=== PATIENT | female | born 1930 | race Caucasian/White ===

== ENCOUNTER 2016-10-24 12:39 | Observation (INO) ==
--- NOTE | 2016-10-24 13:34 | Emergency Department Note ---
Disposition Clinical Impression: Urinary tract infection, Altered mental status Disposition: Admitted As Inpatient Condition: Fair Time of Disposition: 15:32 Altered Mental Status HPI - General Chief Complaint: ED General Medical Stated Complaint: Confusion Time Seen by Provider: 10/24/16 12:51 Source: patient, family Mode of arrival: ambulatory Limitations: no limitations Nursing Notes Reviewed: Yes Vital Signs Reviewed: Yes - History of Present Illness HPI Narrative: Ms Roladn is an 85yo female with PMH of HLD, HTN and KS who was brought in by family due to confusion this morning. Family states that patient woke up this morning confused and agitated/aggressive. Patient was talking about how she lives with her and he was home with her last night - despite that fact that her approximately a year ago. Family reports that she has not been eating or drinking very much in the last few weeks and she has been very depressed over the holidays. Patient reports nausea in the morning, now resolved, and some pelvic "pressure" prior to urination. Patient denies any recent falls or head trauma. Family and patient deny an facial drooping, slurred speech, numbness or weakness in arms or legs. On exam, patient is awake and alert, oriented to person, place and time. She has no facial drooping. Motor and sensation grossly intact and equal BL. Abdomen is soft, nontender. Family is concerned for a UTI as patient has had UTI's causing confusion several times in the past. Discussing with family they are very worried that patient is unable to take care of her self at home. MD complaint: altered mental status, confusion Onset (ago): hour(s) Timing confirmed by: family member Pain Severity: none - Related Data Home Medications Medication Instructions Recorded Confirmed Clopidogrel Bisulfate [Plavix] 75 mg PO DAILY 10/24/16 10/24/16 Furosemide [Lasix] 20 mg PO DAILY PRN 10/24/16 10/24/16 Levothyroxine [Synthroid] 50 mcg PO DAILY 10/24/16 10/24/16 Metoprolol XL (24 HR) Succ [Toprol 12.5 mg PO DAILY 10/24/16 10/24/16 XL] TraZODone 50 mg PO HS 10/24/16 10/24/16 Tramadol HCl [Ultram] 25 - 50 mg PO QID PRN 10/24/16 10/24/16 Allergies Allergy/AdvReac Type Severity Reaction Status Date / Time codeine AdvReac Gastrointestinal Verified 10/24/16 16:39 Upset Msdiydy-Vbm-Nhg Reductase AdvReac See Verified 10/24/16 16:39 Inhibitor Comments [Statins] Zolpidem [From Ambien] AdvReac Hallucinati Verified 10/24/16 12:47 ng Constitutional: Denies: fever, chills Eyes: Denies: vision change Cardiovascular: Denies: chest pain, palpitations Respiratory: Denies: cough, dyspnea, wheezes Gastrointestinal: Denies: abdominal pain, nausea, vomiting Genitourinary: Reports: other (pressure prior to urination ). Denies: urgency, dysuria, frequency, hematuria Neurological: Reports: confusion. Denies: headache, weakness, numbness, paresthesias, abnormal gait, vertigo Past Medical History - Past Medical History Medical history: Reports: hyperlipidemia, hypertension, myocardial infarction, TIA - Social History Smoking Status: Never smoker Alcohol use: Reports: none Drug use: Reports: none Physical Exam - General Limitations: no limitations General appearance: alert, in no apparent distress - Head Head exam: atraumatic, normocephalic - Eye Eye exam: Present: normal appearance, PERRL, EOMI - ENT ENT exam: normal exam, mucous membranes dry - Neck Neck exam: Present: normal inspection, full ROM, meningismus - Chest Chest inspection: Present: normal inspection, symmetric chest wall rise - Respiratory Respiratory exam: Present: normal lung sounds bilaterally. Absent: respiratory distress, wheezes - Cardiovascular Cardiovascular exam: Present: regular rate, normal rhythm - Abdominal Exam Abdominal exam: Present: soft, Non-Tender. Absent: distention, guarding, rebound - Extremities Exam Extremities exam: Present: normal inspection, full ROM - Neurological Exam Neurological exam: Present: alert, oriented X3, CN II-XII intact - Psychiatric Psychiatric exam: Present: normal affect, normal mood - Skin Skin exam: Present: warm, dry, intact Course Course Narrative: Ms Roland is an 85yo female who was brought in by family due to confusion this morning. Family states that patient woke up this morning confused and agitated/ aggressive. Patient was talking about how she lives with her and he was home with her last night - despite that fact that her approximately a year ago. Patient denies any recent falls or head trauma. Family and patient deny an facial drooping, slurred speech, numbness or weakness in arms or legs. On exam, patient is awake and alert, oriented to person, place and time. She has no facial drooping. Motor and sensation grossly intact and equal BL. Abdomen is soft, nontender. Will do a Head CT, EKG, and CXR. Will get a CBC, CMP, trop, and UA. Patient seems less confused at this time. - Reevaluation(s) Reevaluation #1: Head CT showed no acute abnormality. CXR showed no acute abnormality. EKG showed normal sinus rhythm. CBC and CMP largely within normal limits. UA showed positive for protien, blood leukocyte esterase and WBC suggestive of possible UTI. Discussed findings with patient and family. There is significant concern that if patient is discharged home she will not be able to take care of herself. She was significantly confused on arrival and reports hallucinations. I do not believe patient would be safe going home. Will need social work evaluation. As such, will discuss patient with hospitalist. - Consultations Consultation #1: Discussed patent with hospitalist Dr Eden and he accepted the patient for admission. Time: 15:31 Vital Signs Temperature 97.1 F L 10/24/16 12:41 Pulse Rate 102 10/24/16 12:41 Respiratory Rate 18 10/24/16 12:41 Blood Pressure 158/90 10/24/16 12:41 O2 Sat by Pulse Oximetry 98 10/24/16 12:41 Temperature 97.1 F L 10/24/16 12:41 Pulse Rate 77 10/24/16 15:24 Respiratory Rate 18 10/24/16 15:24 Blood Pressure 103/62 10/24/16 15:24 O2 Sat by Pulse Oximetry 100 10/24/16 15:24 Oxygen Delivery Oxygen Delivery Room Air Altered Mental Status - MDM Narrative Medical decision making narrative: Ms Roland is an 85yo female who was brought in by family due to confusion this morning. Family states that patient woke up this morning confused and agitated/ aggressive. Patient was talking about how she lives with her and he was home with her last night - despite that fact that her approximately a year ago. Patient denies any recent falls or head trauma. Family and patient deny an facial drooping, slurred speech, numbness or weakness in arms or legs. On exam, patient is awake and alert, oriented to person, place and time. She has no facial drooping. Motor and sensation grossly intact and equal BL. Abdomen is soft, nontender. Patient has no signs suggestive of a stroke. Head CT showed no acute abnormality. CXR showed no acute abnormality. EKG showed normal sinus rhythm. CBC and CMP largely within normal limits. UA showed positive for protien, blood leukocyte esterase and WBC suggestive of possible UTI. Discussed findings with patient and family. There is significant concern that if patient is discharged home she will not be able to take care of herself. She was significantly confused on arrival and reports hallucinations. I do not believe patient would be safe going home. Will need social work evaluation. Patient was accepted by the hospitalist for admission. - Differential Diagnosis Likely: altered mental status, delirium, dementia, hypoglycemia, subarachnoid hemorrhage, sepsis - Lab Data Lab results reviewed: Yes I reviewed the patient's lab results. Result diagrams: 10/24/16 13:44 10/24/16 13:44 Lab Results 10/24/16 10/24/16 10/24/16 Range/Units 13:41 13:43 13:44 WBC 6.9 (4.3-11.1) K/mcL RBC 4.62 (3.82-4.97) M/mcL Hgb 14.5 (11.5-15.4) g/dL Hct 43.9 (35.3-44.9) % MCV 95.0 (83.0-100.0) fL MCH 31.4 (28.0-33.3) pg MCHC 33.0 (31.6-35.5) g/dL RDW 12.4 (11.5-14.5) % Plt Count 222 (140-400) K/mcL MPV 9.9 (9.4-12.4) fL Immature Gran % 0.3 (0-4) % Seg Neutrophils % 61.5 % Lymphocytes % 26.3 % Monocytes % 7.4 % Eosinophils % 3.9 % Basophils % 0.6 % Neutrophils # 4.2 (1.6-8.9) K/mcL Lymphocytes # 1.8 (0.6-4.6) K/mcL Monocytes # 0.5 (0.0-1.3) K/mcL Eosinophils # 0.3 (0.0-0.6) K/mcL Basophils # 0.0 (0.0-0.2) K/mcL PT (9.4-12.1) Seconds INR APTT (26.0-36.0) Seconds Sodium (136-145) mEq/L Potassium (3.5-4.5) mEq/L Chloride (98-109) mEq/L Carbon Dioxide (19-29) mEq/L BUN (7-20) mg/dL Creatinine (0.57-1.11) mg/dL Est GFR ( Amer) (> 60) Est GFR (Non-Af Amer) (> 60) BUN/Creatinine Ratio (6-26) Glucose (70-99) mg/dL Calculated Osmolality (280-300) Calcium (8.6-10.8) mg/dL Troponin I (0-0.03) ng/mL Urine Color Yellow (Yellow) Urine Clarity Turbid A (Clear) Urine pH 6.0 (5.0-8.0) pH Units Ur Specific Huggins 1.025 (1.010-1.025) Urine Protein 30 H (Neg-Trace) mg/dL Urine Glucose (UA) Normal (Normal) mg/dL Urine Ketones Negative (Negative) mg/dL Urine Blood Trace H (Negative) Urine Nitrite Negative (Negative) Urine Bilirubin Negative (Negative) Urine Urobilinogen Normal (Normal) mg/dL Ur Leukocyte Esterase Trace H (Negative) Urine Microscopic RBC 0-3 (0-3) per hpf Urine Microscopic WBC 15-30 H (0-3) per hpf Ur Squamous Epith Cells Many H (None-Few) per lpf Amorphous Sediment Few (Few) Urine Bacteria None Seen (None-Few) per hpf Hyaline Casts None Seen (None-Few) per lpf Urine Mucus Few (Few) Ur Culture Indicated? YES A (NO) Urine Opiates Screen Negative (Orlcho=341) ng/mL Ur Barbiturates Screen Negative (Jyhshz=350) ng/mL Ur Phencyclidine Scrn Negative (Cutoff=25) ng/mL Ur Amphetamines Screen Negative (Emolaz=7154) ng/mL U Benzodiazepines Scrn Positive H (Zizslb=547) ng/mL Urine Cocaine Screen Negative (Cutoff= 300) ng/mL U Marijuana (THC) Screen Negative (Cutoff = 50) ng/mL 10/24/16 10/24/16 10/24/16 Range/Units 13:44 13:44 13:44 WBC (4.3-11.1) K/mcL RBC (3.82-4.97) M/mcL Hgb (11.5-15.4) g/dL Hct (35.3-44.9) % MCV (83.0-100.0) fL MCH (28.0-33.3) pg MCHC (31.6-35.5) g/dL RDW (11.5-14.5) % Plt Count (140-400) K/mcL MPV (9.4-12.4) fL Immature Gran % (0-4) % Seg Neutrophils % % Lymphocytes % % Monocytes % % Eosinophils % % Basophils % % Neutrophils # (1.6-8.9) K/mcL Lymphocytes # (0.6-4.6) K/mcL Monocytes # (0.0-1.3) K/mcL Eosinophils # (0.0-0.6) K/mcL Basophils # (0.0-0.2) K/mcL PT 12.3 H (9.4-12.1) Seconds INR 1.1 APTT 34.3 (26.0-36.0) Seconds Sodium 136 (136-145) mEq/L Potassium 3.9 (3.5-4.5) mEq/L Chloride 104 (98-109) mEq/L Carbon Dioxide 25 (19-29) mEq/L BUN 15 (7-20) mg/dL Creatinine 1.02 (0.57-1.11) mg/dL Est GFR ( Amer) > 60 (> 60) Est GFR (Non-Af Amer) 52 L (> 60) BUN/Creatinine Ratio 15 (6-26) Glucose 143 H (70-99) mg/dL Calculated Osmolality 285 (280-300) Calcium 9.4 (8.6-10.8) mg/dL Troponin I 0.01 (0-0.03) ng/mL Urine Color (Yellow) Urine Clarity (Clear) Urine pH (5.0-8.0) pH Units Ur Specific Huggins (1.010-1.025) Urine Protein (Neg-Trace) mg/dL Urine Glucose (UA) (Normal) mg/dL Urine Ketones (Negative) mg/dL Urine Blood (Negative) Urine Nitrite (Negative) Urine Bilirubin (Negative) Urine Urobilinogen (Normal) mg/dL Ur Leukocyte Esterase (Negative) Urine Microscopic RBC (0-3) per hpf Urine Microscopic WBC (0-3) per hpf Ur Squamous Epith Cells (None-Few) per lpf Amorphous Sediment (Few) Urine Bacteria (None-Few) per hpf Hyaline Casts (None-Few) per lpf Urine Mucus (Few) Ur Culture Indicated? (NO) Urine Opiates Screen (Kenkvw=267) ng/mL Ur Barbiturates Screen (Igmrnv=128) ng/mL Ur Phencyclidine Scrn (Cutoff=25) ng/mL Ur Amphetamines Screen (Dagohe=4721) ng/mL U Benzodiazepines Scrn (Vndfal=019) ng/mL Urine Cocaine Screen (Cutoff= 300) ng/mL U Marijuana (THC) Screen (Cutoff = 50) ng/mL - Radiology Data Radiology results reviewed: Yes I reviewed the patient's radiology results. Chest X-Ray 10/24/16 13:25 IMPRESSION: Stable portable study. D/ / Connie Rao Cha, MD / Connie Rao Cha, MD Interpreting Provider: Connie Rao Cha, MD Head CT 10/24/16 13:32 IMPRESSION: No acute intracranial abnormality. If there is clinical concern for acute cerebral infarct, an MRI is a more sensitive study. D/ / Connie Rao Cha, MD / Connie Rao Cha, MD Interpreting Provider: Connie Rao Cha, MD - EKG Data EKG attestation: Yes I reviewed and interpreted this EKG. EKG results narrative: EKG shwos normal sinus rhythm. Vent rate 75 bpm, GA int 168ms, QRS dur 88ms, QTc 386ms. No changes from previous EKG from 04/05/2015. TPA Checklist - LKW: 3-4.5 hrs Add. Contraindications Patient/family understanding: The patient/family members have been counseled and understood the risk, benefit , and alternatives of treatment. Attestation Statement - Attestation Attestation: I examined this patient and my medical decision-making was reviewed with the [place]/Advanced Practice Nurse/Resident Physician. I agree with the documented findings, disposition and treatment plan as described except to the extent set forth below. Patient emergency department she complained of hallucinations. Family brought her in because she seen people that are not there. Seeing her . Concern for UTI as they were told by a doctor recently that she may have a mild UTI and to watch her. On exam she is awake and alert in no distress. Appropriate for me. Abdomen soft lungs clear. Plan. Patient with UTI. Her blood work is normal. Concern for her safety at home. Patient is admitted to medicine.
[2016-10-24] MEDS ORDERED: 0.9 % Sodium Chloride 500 ML IVC ONE (13:35)
[2016-10-24 13:47] LABS: Bilirubin,Urine Negative (Negative); Blood,Urine Trace (Negative); Clarity,Urine Turbid (Clear); Color,Urine Yellow (Yellow); Glucose,Urine (UA) Normal (Normal); Ketones,Urine Negative (Negative); Leukocyte Esterase,Urine Trace (Negative); Nitrite,Urine Negative (Negative); Protein,Urine 30 mg/dL (Neg-Trace); Specific Gravity,Urine 1.025 (1.010-1.025); Urobilinogen,Urine Normal (Normal)
[2016-10-24 13:49] LABS: Bacteria,Urine None Seen per hpf (None-Few); Hyaline Casts,Urine None Seen per lpf (None-Few); RBC,Urine 0-3 per hpf (0-3); Squamous Epithelial Cell,Urine Many per lpf (None-Few); WBC,Urine 15-30 per hpf (0-3)
[2016-10-24 13:53] LABS: Basophils % 0.6 %; Eosinophils # 0.3 K/mcL (0.0-0.6); Eosinophils % 3.9 %; Hematocrit 43.9 % (35.3-44.9); Hemoglobin 14.5 g/dL (11.5-15.4); Immature Granulocytes % 0.3 % (0-4); Lymphocytes # 1.8 K/mcL (0.6-4.6); Lymphocytes % 26.3 %; Mean Corpuscular Hemoglobin 31.4 pg (28.0-33.3); Mean Platelet Volume 9.9 fL (9.4-12.4); Monocytes # 0.5 K/mcL (0.0-1.3); Monocytes % 7.4 %; Neutrophils # 4.2 K/mcL (1.6-8.9); Platelet Count 222 K/mcL (140-400); Red Blood Count 4.62 M/mcL (3.82-4.97); Red Cell Distribution Width 12.4 % (11.5-14.5); Segmented Neutrophils % 61.5 %
[2016-10-24 13:53] LABS: Amphetamine Screen,Urine Negative ng/mL (Cutoff=1000); Barbiturate Screen,Urine Negative ng/mL (Cutoff=200); Benzodiazepines Screen,Urine Positive ng/mL (Cutoff=200); Cannabinoid Screen,Urine Negative ng/mL (Cutoff = 50); Cocaine Screen,Urine Negative ng/mL (Cutoff= 300); Opiate Screen,Urine Negative ng/mL (Cutoff=300); Phencyclidine Screen,Urine Negative ng/mL (Cutoff=25)
[2016-10-24 13:58] LABS: INR 1.1; Prothrombin Time 12.3 Seconds (9.4-12.1)
[2016-10-24 14:00] LABS: Activated Partial Thrombo Time 34.3 Seconds (26.0-36.0)
[2016-10-24 14:00] LABS: Amorphous Sediment,Urine Few (Few); Mucus,Urine Few (Few)
[2016-10-24 14:03] LABS: BUN/Creatinine Ratio 15 (6-26); Blood Urea Nitrogen 15 mg/dL (7-20); Calcium 9.4 mg/dL (8.6-10.8); Carbon Dioxide 25 mEq/L (19-29); Chloride 104 mEq/L (98-109); Glucose 143 mg/dL (70-99); Osmolality,Calculated 285 (280-300); Potassium 3.9 mEq/L (3.5-4.5); Sodium 136 mEq/L (136-145); eGFR For African Americans > 60 (> 60); eGFR For Non-African Americans 52 (> 60)
--- NOTE | 2016-10-24 16:13 | Internal Med History&Physical ---
<Ephraim Garsia - Last Filed: 10/24/16 17:24> Date of Encounter: 10/24/16 Time of Encounter: 15:30 Assessment and Plan (1) Altered mental status Current visit: Yes Status: Acute - Likely delirium secondary to medications (tramadol & trazodone), possible UTI and/or dehydration from poor oral intake in the setting of depression. - Improved as patient is now alert & oriented. - Hold tramadol & trazodone. - Treat UTI with Rocephin. - Hydration with IV NS. - Continue to monitor. Qualifiers: Altered mental status type: unspecified Qualified Code(s): R41.82 - Altered mental status, unspecified (2) Urinary tract infection Current visit: Yes Status: Acute - With suprapubic pressure and altered mental status. - History of UTI and associated AMS in the past. - UA found trace leukocyte esterase. Urine culture pending. - Continue Rocephin. Qualifiers: Urinary tract infection type: site unspecified Hematuria presence: without hematuria Qualified Code(s): N39.0 - Urinary tract infection, site not specified (3) Depression Current visit: Yes Status: Chronic - With loss of interest and decreased oral intake since patient's . - Patient denies suicidal ideation or plan at this time. - Patient is recommended to follow up with her PCP after discharge for depression management. Qualifiers: Depression Type: unspecified Qualified Code(s): F32.9 - Major depressive disorder, single episode, unspecified (4) CAD (coronary artery disease) Current visit: Yes Status: Chronic - CAD status RCA & LAD ARABELLA in 2012. - Continue metoprolol, aspirin, Plavix. Qualifiers: Coronary Disease-Associated Artery/Lesion type: [place] artery [place] vs. transplanted heart: [place] heart Associated angina: angina presence unspecified Qualified Code(s): I25.10 - Atherosclerotic heart disease of [place] coronary artery without angina pectoris (5) DVT prophylaxis Current visit: Yes Status: Acute - SQ heparin. GI prophylaxis - Omeprazole. Internal Medicine - H&P: HPI Chief complaint: Altered mental status Admitted From: Emergency Dept Plans for Post Hospital Care: Home History of present illness: Ms. Roland is a 85 year old female with PMH of HTN, HLD, hypothyroidism and CAD s/p RCA & LAD ARABELLA in 2012. Patient woke up this morning with confusion and seeing her who a year ago. Patient's family has significant concern about UTI given patient has history of UTI and associated AMS in the past so patient was brought to the ED. Upon my encounter in the ER, patient is alerted & oriented. Patient reports having deep suprapubic pressure but denies dysuria or hematuria. Patient denies fever, chills, diarrhea, chest pain, shortness of breath, cough. Patient's family reports that patient has been depressed since her and has poor oral intake recently. Patient admits to be depressed with loss of interest since her passed. She states "I don't want to live anymore" and wishes to meet her . But she also denies having idea or plan to kill herself. Patient's current medications include tramadol and trazodone and the family thinks patient may accidentally took extra dose. Patient was on Valium few months ago but not anymore. Patient denies taking old medication pill recently. Patient reports she is functional and able to take care herself at home. Family members seem to disagree with that and have concern about patient living alone by herself. Patient doesn't want any resuscitation if cardiac arrest. Past Med Surg Social Fam HX - Past Medical History Medical history: hyperlipidemia, hypertension, myocardial infarction, TIA - Social History Smoking Status: Never smoker Alcohol use: none Drug use: none Internal Medicine - H&P: Meds Clopidogrel Bisulfate [Plavix] 75 mg PO DAILY 10/24/16 [History] Furosemide [Lasix] 20 mg PO DAILY PRN 10/24/16 [History] Levothyroxine [Synthroid] 50 mcg PO DAILY 10/24/16 [History] Metoprolol XL (24 HR) Succ [Toprol XL] 12.5 mg PO DAILY 10/24/16 [History] TraZODone 50 mg PO HS 10/24/16 [History] Tramadol HCl [Ultram] 25 - 50 mg PO QID PRN 10/24/16 [History] Allergies codeine Adverse Reaction (Verified 10/24/16 16:39) Gastrointestinal Upset Euzlrgs-Hbi-Wwp Reductase Inhibitor [Statins] Adverse Reaction (Verified 16:39) See Comments ELEVATED LIVER ENZYMES Zolpidem [From Ambien] Adverse Reaction (Verified 10/24/16 12:47) Hallucinating All Systems PM: A 10-system review of systems was performed and is negative for pertinent findings except as documented above in the HPI. - Constitutional Constitutional: anorexia, no chills, no fever(s) - EENT Eyes: no change in vision Ears: no decreased hearing Nose, mouth and throat: no dysphagia - Cardiovascular Cardiovascular ROS IM: edema (Chronic, stable), no chest pain, no palpitations, no syncope - Respiratory Respiratory: no cough, no dyspnea, no hemoptysis, no excessive phlegm production - Gastrointestinal Gastrointestinal: abdominal pain (Suprapubic pressure), no diarrhea, no hematochezia, no melena, no nausea, no vomiting - Genitourinary Genitourinary: no difficulty urinating, no dysuria, no hematuria - Musculoskeletal Musculoskeletal ROS IM: no arthralgias, no myalgias - Integumentary Integumentary IM: no pruritus, no rash - Neurological Neurological ROS: no focal weakness, no numbness, no tingling - Psychiatric Psychiatric: depression - Hematologic/Lymphatic Hematologic/Lymphatic: no easy bleeding, no easy bruising - Constitutional Vitals: Temp Pulse Resp BP Pulse Ox 97.1 F L 77 18 103/62 100 10/24/16 12:41 10/24/16 15:24 10/24/16 15:24 10/24/16 15:24 10/24/16 15:24 General appearance: Present: A&O X 3, no acute distress, answers questions appropriately - Head Head exam: Present: atraumatic, normocephalic - Eye Eye exam: Present: PERRL, conjuntiva pink, sclera anicteric - Neck Neck exam general surgery: Present: supple, trachea midline. Absent: lymphadenopathy - Respiratory Respiratory exam: Present: CTAB. Absent: accessory muscle use, rales, rhonchi, wheezes - Cardiovascular Cardiovascular exam: Present: RRR, +S1, +S2. Absent: diastolic murmur, gallop, rubs, systolic murmur - GI/Abdominal GI/Abdominal exam: Present: normal bowel sounds, soft, no peritoneal signs. Absent: distended, tenderness - Extremities Exam Extremities exam: Present: warm, radial pulses palpable and symetrical. Absent : calf tenderness, cyanotic, pedal edema - Neurological Exam Neurological exam: Present: CN II-XII intact, oriented X3, no focal deficits. Absent: pronater drift, facial droop, speech deficit - Skin Skin exam: Present: dry, intact, warm Internal Med - H&P Results - Labs CBC & Chem 7: 10/24/16 13:44 10/24/16 13:44 Labs: Short CBC 10/24/16 Range/Units 13:44 WBC 6.9 (4.3-11.1) K/mcL Hgb 14.5 (11.5-15.4) g/dL Hct 43.9 (35.3-44.9) % Plt Count 222 (140-400) K/mcL Neutrophils # 4.2 (1.6-8.9) K/mcL BMP 10/24/16 13:44 Sodium 136 Potassium 3.9 Chloride 104 Carbon Dioxide 25 BUN 15 Creatinine 1.02 Glucose 143 H Calcium 9.4 Cardiac Enzymes 10/24/16 Range/Units 13:44 Troponin I 0.01 (0-0.03) ng/mL Urine 10/24/16 Range/Units 13:43 Urine Color Yellow (Yellow) Urine Clarity Turbid A (Clear) Urine pH 6.0 (5.0-8.0) pH Units Ur Specific Randall 1.025 (1.010-1.025) Urine Protein 30 H (Neg-Trace) mg/dL Urine Glucose (UA) Normal (Normal) mg/dL - Impressions ITS Impressions Chest X-Ray 10/24/16 13:25 IMPRESSION: Stable portable study. D/ / Connie Rao Cha, MD / Connie Rao Cha, MD Interpreting Provider: Connie Rao Cha, MD Head CT 10/24/16 13:32 IMPRESSION: No acute intracranial abnormality. If there is clinical concern for acute cerebral infarct, an MRI is a more sensitive study. D/ / Connie Rao Cha, MD / Connie Rao Cha, MD Interpreting Provider: Connie Rao Cha, MD <Claudio Eden - Last Filed: 10/24/16 18:48> Date of Encounter: 10/24/16 Internal Medicine - H&P: HPI History of present illness: Ms. Roland is a 85 year old female Past Med Surg Social Fam HX - Family History Father Living Status: Age at : 45 Hx Family Cardiac Disorders: Yes Hx Family Endocrine Disorder: Yes (DM) All Systems PM: A 10-system review of systems was performed and is negative for pertinent findings except as documented above in the HPI. - Constitutional Vitals: Temp Pulse Resp BP Pulse Ox 98.0 F 89 15 106/73 97 10/24/16 17:53 10/24/16 17:53 10/24/16 17:53 10/24/16 17:53 10/24/16 17:53 Internal Med - H&P Results - Labs CBC & Chem 7: 10/24/16 13:44 10/24/16 13:44 - Attending Attestation I have seen and examined this patient independently. I have discussed the case with the resident, Dr. Li. I agree with the data gathering in the HPI, physical examination findings, assessment and plan as documented by the resident. Delirium, likely multifactorial, possible uti and medications side effects. D/W patient and her daughter.
[2016-10-24] MEDS ORDERED: Acetaminophen 325 MG TABLET PO PRN (16:31)
[2016-10-24] MEDS ORDERED: Ondansetron 4 MG/2 ML VIAL IVP PRN (16:31)
[2016-10-24 17:32] LABS: Thyroid Stimulating Hormone 2.072 mcIU/mL (0.350-4.840)
[2016-10-24] MEDS: *HR* Heparin 5,000 UNIT/ML VIAL SQ SCH (18:33)
[2016-10-24] MEDS: 0.9 % Sodium Chloride 1,000 ML IVC SCH (18:33)
[2016-10-24] MEDS ORDERED: traZODone 50 MG TABLET PO PRN (19:54)
[2016-10-25 03:55] LABS: Basophils # 0.1 K/mcL (0.0-0.2); Basophils % 0.6 %; Eosinophils # 0.3 K/mcL (0.0-0.6); Hematocrit 38.6 % (35.3-44.9); Immature Granulocytes % 0.2 % (0-4); Lymphocytes # 3.3 K/mcL (0.6-4.6); Lymphocytes % 40.2 %; Mean Corpuscular HGB Conc 33.7 g/dL (31.6-35.5); Mean Corpuscular Hemoglobin 32.2 pg (28.0-33.3); Mean Corpuscular Volume 95.5 fL (83.0-100.0); Mean Platelet Volume 10.3 fL (9.4-12.4); Monocytes # 0.6 K/mcL (0.0-1.3); Monocytes % 7.3 %; Neutrophils # 3.9 K/mcL (1.6-8.9); Platelet Count 214 K/mcL (140-400); Red Blood Count 4.04 M/mcL (3.82-4.97); Red Cell Distribution Width 12.2 % (11.5-14.5); Segmented Neutrophils % 47.7 %
[2016-10-25 04:16] LABS: Bilirubin,Total 0.5 mg/dL (0.2-1.2); Calcium 8.7 mg/dL (8.6-10.8); Globulin 3.1 g/dL (2.4-3.5); Potassium 3.8 mEq/L (3.5-4.5); Total Protein 6.1 g/dL (6.0-8.3)
[2016-10-25] MEDS: 0.9 % Sodium Chloride 1,000 ML IVC SCH ×2 (04:48→15:01)
[2016-10-25] MEDS: *HR* Heparin 5,000 UNIT/ML VIAL SQ SCH ×2 (06:18→17:54)
[2016-10-25] MEDS: Thiamine (B-1) 100 MG TABLET PO SCH (09:55)
[2016-10-25] MEDS: Metoprolol XL (24 HR) Succ 25 MG TAB.ER.24H PO SCH (09:55)
--- NOTE | 2016-10-25 11:57 | Discharge Summary ---
Date of Encounter: 10/25/16 - Discharge Medications Home Medications: Clopidogrel Bisulfate [Plavix] 75 mg PO DAILY 10/24/16 [History] Furosemide [Lasix] 20 mg PO DAILY PRN 10/24/16 [History] Levothyroxine [Synthroid] 50 mcg PO DAILY 10/24/16 [History] Metoprolol XL (24 HR) Succ [Toprol XL] 12.5 mg PO DAILY 10/24/16 [History] TraZODone 50 mg PO HS 10/24/16 [History] Tramadol HCl [Ultram] 25 - 50 mg PO QID PRN 10/24/16 [History] Allergies/Adverse Reactions: Allergies codeine Adverse Reaction (Verified 10/24/16 16:39) Gastrointestinal Upset Lqtmoch-Qzk-Imp Reductase Inhibitor [Statins] Adverse Reaction (Verified 16:39) See Comments ELEVATED LIVER ENZYMES Zolpidem [From Ambien] Adverse Reaction (Verified 10/24/16 12:47) Hallucinating Date of admission: 10/24/16 15:58 Primary care physician: Galdino Lambert MD Consults: 10/25/16 06:31 Consult to Psychiatric Aide [CONS] Routine Reason for SW Consult: Lives at home alone. Possibly miss managed home medication. Generalized weakness. States not the first time she's been admitted with AMS/UTI. - Patient Status Condition: Fair - Discharge Instructions Follow Up With: Galdino Lambert MD [Primary Care Provider] - Hospital course: Ms. Roland is a 85 year old female - Time Spent with Patient Total time spent providing and/or coordinating discharge services: - Constitutional Vitals: Temp Pulse Resp BP Pulse Ox 97.8 F 71 12 142/79 94 L 10/25/16 11:06 10/25/16 11:06 10/25/16 11:06 10/25/16 11:06 10/25/16 11:06 General appearance: Present: A&O X 3, no acute distress, answers questions appropriately
--- NOTE | 2016-10-25 12:14 | Internal Med Progress Note ---
Date of Encounter: 10/25/16 Time of Encounter: 12:00 - Assessment and plan (1) Polypharmacy Current Visit: Yes Status: Acute Assessment and plan: Patient is taking trazodone and taking up to 2-3 tramadol/day. With her depression will add remeron at night. Tylenol scheduled 3 times a day, weaned off from the medication. Close monitoring overnight (2) Altered mental status Current Visit: Yes Status: Acute Assessment and plan: Possible secondary to polypharmacy and benzodiazepine Qualifiers: Altered mental status type: unspecified Qualified Code(s): R41.82 - Altered mental status, unspecified (3) Urinary tract infection Current Visit: Yes Status: Acute Assessment and plan: Continue current antibiotic awaiting final culture Qualifiers: Urinary tract infection type: site unspecified Hematuria presence: without hematuria Qualified Code(s): N39.0 - Urinary tract infection, site not specified (4) Depression Current Visit: Yes Status: Chronic Assessment and plan: Add remeron at bedtime Qualifiers: Depression Type: unspecified Qualified Code(s): F32.9 - Major depressive disorder, single episode, unspecified - Time Spent With Patient 25 - 35 minutes (Plan discussed with Daughter , Need [facility] on Discharge) - Subjective Interval history: Patient was admitted last night with confusion, patient is feeling better today , discussed with daughter, she stated that that her mom is confused sometimes about her medication, very depressed lately. taking tramadol more than schedule. Possible taking the old prescription of Valium before. She is concerned about safety. She is living home alone - Constitutional Vitals: Temp Pulse Resp BP Pulse Ox 97.8 F 71 12 142/79 94 L 10/25/16 11:06 10/25/16 11:06 10/25/16 11:06 10/25/16 11:06 10/25/16 11:06 General appearance: Present: A&O X 3, no acute distress, answers questions appropriately - Head Head exam: Present: atraumatic, normocephalic - Neck Neck exam general surgery: Present: supple, trachea midline. Absent: lymphadenopathy - Cardiovascular Cardiovascular exam: Present: RRR, +S1, +S2. Absent: diastolic murmur, gallop, rubs, systolic murmur - GI/Abdominal GI/Abdominal exam: Present: normal bowel sounds, soft, no peritoneal signs. Absent: distended, tenderness - Extremities Exam Extremities exam: Present: warm, radial pulses palpable and symetrical. Absent : calf tenderness, cyanotic, pedal edema - Neurological Exam Neurological exam: Present: CN II-XII intact, oriented X3, no focal deficits. Absent: pronater drift, facial droop, speech deficit Internal Medicine: Result - Labs CBC & Chem 7: 10/25/16 03:02 10/25/16 03:02 Labs: Short CBC 10/25/16 Range/Units 03:02 WBC 8.1 (4.3-11.1) K/mcL Hgb 13.0 D (11.5-15.4) g/dL Hct 38.6 (35.3-44.9) % Plt Count 214 (140-400) K/mcL Neutrophils # 3.9 (1.6-8.9) K/mcL BMP 10/25/16 03:02 Sodium 140 Potassium 3.8 Chloride 108 Carbon Dioxide 24 BUN 15 Creatinine 1.08 Glucose 97 Calcium 8.7 Liver Function 10/25/16 Range/Units 03:02 Total Bilirubin 0.5 (0.2-1.2) mg/dL AST 23 (5-34) Units/L ALT 15 (0-55) Units/L Alkaline Phosphatase 73 (38-126) Units/L Albumin 3.0 L (3.5-5.0) g/dL - ABG Interpretation ABG results: PT/INR, D-dimer PT 12.3 Seconds (9.4-12.1) H 10/24/16 13:44 Consult Discharge Plan - Plan Referrals: Galdino Lambert MD [Primary Care Provider] -
[2016-10-25] MEDS: Mirtazapine 15 MG TABLET PO SCH ×2 (17:56→20:27)
[2016-10-26] MEDS: *HR* Heparin 5,000 UNIT/ML VIAL SQ SCH (06:12)
[2016-10-26] MEDS: Metoprolol XL (24 HR) Succ 25 MG TAB.ER.24H PO SCH (08:54)
[2016-10-26] MEDS: Thiamine (B-1) 100 MG TABLET PO SCH (08:54)
[2016-10-26 10:43] LABS: Phosphorous 2.9 mg/dL (2.3-4.7)
--- NOTE | 2016-10-26 10:58 | Electrocardiograph Report ---
[facility] Test Date: 2016-10-24 Pat Name: Isis Roland Department: 104 Room: 3B43 Gender: F Process Area Supervisor: : [id number] Requested By: Jossy Dominique Order Number: [id number] Reading MD: Jesus Quesada MD Measurements Intervals [place] Rate: 75 P: 47 CT: 168 QRS: 35 QRSD: 88 T: -5 QT: 357 QTc: 386 Interpretive Statements SINUS RHYTHM INDETERMINATE AXIS Electronically Signed On 10-26-16 10:57:26 EST by Jesus Quesada MD
[2016-10-26 11:44] VITALS: BP 104/64
--- NOTE | 2016-10-26 14:35 | Discharge Summary ---
Date of Encounter: 10/27/16 Time of Encounter: 14:30 - Discharge Diagnosis (1) Polypharmacy Priority: Secondary Status: Acute (2) Altered mental status Priority: Primary Status: Acute Qualifiers: Altered mental status type: unspecified Qualified Code(s): R41.82 - Altered mental status, unspecified (3) Urinary tract infection Priority: Primary Status: Acute Qualifiers: Urinary tract infection type: site unspecified Hematuria presence: without hematuria Qualified Code(s): N39.0 - Urinary tract infection, site not specified (4) Depression Priority: Secondary Status: Chronic Qualifiers: Depression Type: unspecified Qualified Code(s): F32.9 - Major depressive disorder, single episode, unspecified - Discharge Medications Prescriptions: Acetaminophen [Tylenol] 500 mg PO TID PRN #90 tablet PRN Reason: Moderate Pain Cephalexin [Keflex] 500 mg PO TID #15 capsule Cyanocobalamin (B-12) [Vitamin B12] 1,000 mcg PO DAILY #90 tablet Ergocalciferol (VITAMIN D2) [Drisdol (50,000 Unit)] 50,000 unit PO QWEEK #10 capsule Mirtazapine [Remeron] 7.5 mg PO HS #30 tablet Thiamine (B-1) [Vitamin B-1] 200 mg PO DAILY #180 tablet Home Medications: Clopidogrel Bisulfate [Plavix] 75 mg PO DAILY 10/24/16 [History] Levothyroxine [Synthroid] 50 mcg PO DAILY 10/24/16 [History] Metoprolol XL (24 HR) Succ [Toprol Xl] 12.5 mg PO DAILY 10/24/16 [History] Acetaminophen [Tylenol] 500 mg PO TID PRN #90 tablet 10/26/16 [Rx] Cephalexin [Keflex] 500 mg PO TID #15 capsule 10/26/16 [Rx] Cyanocobalamin (B-12) [Vitamin B12] 1,000 mcg PO DAILY #90 tablet 10/26/16 [Rx] Ergocalciferol (VITAMIN D2) [Drisdol (50,000 Unit)] 50,000 unit PO QWEEK #10 capsule 10/26/16 [Rx] Mirtazapine [Remeron] 7.5 mg PO HS #30 tablet 10/26/16 [Rx] Thiamine (B-1) [Vitamin B-1] 200 mg PO DAILY #180 tablet 10/26/16 [Rx] Allergies/Adverse Reactions: Allergies codeine Adverse Reaction (Verified 10/24/16 16:39) Gastrointestinal Upset Mhqrqqp-Pvd-Mgq Reductase Inhibitor [Statins] Adverse Reaction (Verified 16:39) See Comments ELEVATED LIVER ENZYMES Zolpidem [From Ambien] Adverse Reaction (Verified 10/24/16 12:47) Hallucinating Date of admission: 10/24/16 15:58 Primary care physician: Galdino Lambert MD Consults: 10/25/16 06:31 Consult to [facility] [CONS] Routine Reason for SW Consult: Lives at home alone. Possibly miss managed home medication. Generalized weakness. States not the first time she's been admitted with AMS/UTI. Discharging clinician: Yumiko Mercado - Patient Status Disposition: Home Health Service Condition: Good Overall status at discharge: patient is progressing back to baseline - Discharge Instructions Instructions: Urinary Tract Infection in Women (DC) Follow Up With: Galdino Lambert MD [Primary Care Provider] - 11/04/16 11:30 am - Diet and Activity Activity: as per physical therapy, resume usual activities as tolerated Diet: low fat, low cholesterol Hospital course: Ms. Roland is a 85 year old female with PMH of HTN, HLD, hypothyroidism and CAD s/p RCA & LAD ARABELLA in 2012. Patient woke up at the day of admission with confusion and seeing her who a year ago. Patient's family has significant concern about UTI given patient has history of UTI and associated AMS in the past so patient was brought to the ED. Upon my encounter in the ER, patient is alerted & oriented. Patient reports having deep suprapubic pressure but denies dysuria or hematuria. Patient denies fever, chills, diarrhea, chest pain, shortness of breath, cough. Patient's family reports that patient has been depressed since her and has poor oral intake recently. Patient admits to be depressed with loss of interest since her passed. She states "I don't want to live anymore" and wishes to meet her . But she also denies having idea or plan to kill herself. Patient's current medications include tramadol and trazodone and the family thinks patient may accidentally took extra dose. Patient was on Valium few months ago but not anymore. Patient denies taking old medication pill recently. Patient was clinically dry, with started patient on IV fluid, we will continue to monitor patient his urinalysis was positive for urinary tract infection is started patient on ceftriaxone. The patient was taken that she was taking tramadol up to 2 tablets daily to help was her suprapubic pain. Her urine tox screen was positive for benzodiazepine. Discussed with family about the medication and about polypharmacy family was agreeable to discontinue trazodone which patient is taking for sleep causing her to be so sleepy the whole day. In addition to tramadol was tapered down and patient was placed on scheduled Tylenol. After starting antibiotic her pain in suprapubic area resolved completely , patient did not need any pain medication. Discussed with family about starting Remeron which can help her with sleep as well as help was her appetite which is low recently in addition to help with depression. Patient does not have any suicidal or homicidal ideation risk and benefits explained . Medications started in the hospital. Patient stated this past night slept all her life . Patient discharged home with home health care. - Time Spent with Patient Total time spent providing and/or coordinating discharge services: - Constitutional Vitals: Temp Pulse Resp BP Pulse Ox 98.1 F 74 15 104/64 93 L 10/26/16 11:39 10/26/16 11:39 10/26/16 11:39 10/26/16 11:39 10/26/16 11:39 General appearance: Present: A&O X 3, no acute distress, answers questions appropriately
--- NOTE | 2016-10-26 16:44 | Physician Discharge Referral ---
- Diagnosis (1) Polypharmacy Status: Acute (2) Altered mental status Priority: Primary Status: Acute (3) Urinary tract infection Priority: Primary Status: Acute (4) Depression Priority: Primary Status: Chronic - Respiratory Orders Smoking Cessation: Smoking cessation has been advised. For more information, call the [place] Tobacco Quit Line at 9-668-LNDH-NOW. - Diet/Nutrition Diet/Nutrition Orders: Regular - Activity Activity Orders: Ambulate - Services Needed Following services are medically necessary services: Nursing, Home Health Aide, Physical Therapy - Transfer Medications Prescriptions: Acetaminophen [Tylenol] 500 mg PO TID PRN #90 tablet PRN Reason: Moderate Pain Cephalexin [Keflex] 500 mg PO TID #15 capsule Cyanocobalamin (B-12) [Vitamin B12] 1,000 mcg PO DAILY #90 tablet Ergocalciferol (VITAMIN D2) [Drisdol (50,000 Unit)] 50,000 unit PO QWEEK #10 capsule Mirtazapine [Remeron] 7.5 mg PO HS #30 tablet Thiamine (B-1) [Vitamin B-1] 200 mg PO DAILY #180 tablet Home Medications: Clopidogrel Bisulfate [Plavix] 75 mg PO DAILY 10/24/16 [History] Levothyroxine [Synthroid] 50 mcg PO DAILY 10/24/16 [History] Metoprolol XL (24 HR) Succ [Toprol Xl] 12.5 mg PO DAILY 10/24/16 [History] Acetaminophen [Tylenol] 500 mg PO TID PRN #90 tablet 10/26/16 [Rx] Cephalexin [Keflex] 500 mg PO TID #15 capsule 10/26/16 [Rx] Cyanocobalamin (B-12) [Vitamin B12] 1,000 mcg PO DAILY #90 tablet 10/26/16 [Rx] Ergocalciferol (VITAMIN D2) [Drisdol (50,000 Unit)] 50,000 unit PO QWEEK #10 capsule 10/26/16 [Rx] Mirtazapine [Remeron] 7.5 mg PO HS #30 tablet 10/26/16 [Rx] Thiamine (B-1) [Vitamin B-1] 200 mg PO DAILY #180 tablet 10/26/16 [Rx] Allergies/Adverse Reactions: Allergies codeine Adverse Reaction (Verified 10/24/16 16:39) Gastrointestinal Upset Grjerfl-Fjn-Lgb Reductase Inhibitor [Statins] Adverse Reaction (Verified 16:39) See Comments ELEVATED LIVER ENZYMES Zolpidem [From Ambien] Adverse Reaction (Verified 10/24/16 12:47) Hallucinating Certification: Further, I certify that my clinical findings support that this patient is homebound (i.e. absences from home require considerable and taxing effort and are for medical reasons or sabianism services or infrequently or short duration when for other reasons) because: Homebound Reason: Altered mental status requiring supervision when leaving home (Need further evaluation for monitoring of her medication for next week) Attestation: My signature below is to certify that this patient is under my care and that I, or nurse practitioner, or a physician's research assistant working with me, has a face-to -face encounter with this patient.
== END 2016-10-26 15:40 | disposition home health service (06) ==
LOC: EMEROO 12:39 → 3BNU 12:39
PROVIDERS: ADMIT Internal Medicine; ATTEND Internal Medicine

== ENCOUNTER 2021-10-14 05:40 | Inpatient (IN) ==
[2021-10-14] MEDS ORDERED: Ondansetron 4 MG/2 ML VIAL IVP PRN (09:40)
[2021-10-14] MEDS ORDERED: Naloxone 0.4 MG/ML INJ IVP PRN (09:40)
[2021-10-14] MEDS ORDERED: Acetaminophen 325 MG TABLET PO PRN (09:40)
[2021-10-14] MEDS ORDERED: *HR* Heparin 5,000 UNIT/ML VIAL IVP PRN ×2 (09:42)
[2021-10-14] MEDS ORDERED: Perflutren Lipid Microsphere 1.3 ML in 0.9 % Sodium Chloride 8.7 ML IVP PRN (09:42)
[2021-10-14] MEDS ORDERED: Heparin 25,000 UNIT/250 ML 25,000 UNIT/250 ML IV.SOLN IVC SCH (09:45)
[2021-10-14] MEDS ORDERED: Isosorbide MONOnitrate (24 HR) 60 MG TAB.ER.24H PO SCH (09:45)
[2021-10-14] MEDS: Aspirin 81 MG TAB.CHEW PO SCH (11:42)
[2021-10-14] MEDS: Metoprolol XL (24 HR) Succ 50 MG TAB.ER.24H PO SCH (11:42)
[2021-10-14 11:48] LABS: Troponin I 7.62 ng/mL (< 0.04)
[2021-10-14 12:02] LABS: BUN/Creatinine Ratio 23 (6-26); Blood Urea Nitrogen 20 mg/dL (8-23); Calcium 8.7 mg/dL (8.6-10.3); Carbon Dioxide 22 mEq/L (23-29); Chloride 106 mEq/L (98-107); Glucose 147 mg/dL (70-105); Osmolality,Calculated 283 (280-300); Potassium 4.5 mEq/L (3.5-5.1); Sodium 134 mEq/L (136-145); eGFR For African Americans > 60 (> 60); eGFR For Non-African Americans > 60 (> 60)
[2021-10-14] MEDS ORDERED: *HR* Midazolam HCl 2 MG/2 ML VIAL ONE (13:15)
[2021-10-14] MEDS ORDERED: *HR* FentaNYL (PF) 100 MCG/2 ML VIAL ONE (13:15)
[2021-10-14] MEDS ORDERED: Nitroglycerin 1,000 MCG/5 ML VIAL IV ONE (13:16)
[2021-10-14] MEDS ORDERED: *HR* Heparin 10,000 UNIT/10 ML VIAL ONE ×2 (13:16→13:40)
[2021-10-14] MEDS ORDERED: ISOVUE-370 200 ML INFUS..BTL ONE (13:16)
[2021-10-14] MEDS ORDERED: Heparin 1,000 UNITS/500 mL 500 ML ONE (13:16)
[2021-10-14] MEDS ORDERED: 0.9 % Sodium Chloride 1,000 ML ONE (13:16)
[2021-10-14] MEDS ORDERED: *HR* LORazepam 2 MG/ML VIAL IVP ONE (19:24)
[2021-10-15 03:10] LABS: Basophils % 0.3 %; Eosinophils # 0.1 K/mcL (0.0-0.6); Eosinophils % 0.6 %; Hematocrit 36.4 % (35.3-44.9); Hemoglobin 11.8 g/dL (11.5-15.4); Immature Granulocytes % 0.4 % (0-4); Lymphocytes # 2.5 K/mcL (0.6-4.6); Lymphocytes % 24.2 %; Mean Corpuscular HGB Conc 32.4 g/dL (31.6-35.5); Mean Corpuscular Hemoglobin 32.3 pg (28.0-33.3); Mean Corpuscular Volume 99.7 fL (83.0-100.0); Mean Platelet Volume 10.9 fL (9.4-12.4); Monocytes # 0.9 K/mcL (0.0-1.3); Neutrophils # 6.8 K/mcL (1.6-8.9); Platelet Count 208 K/mcL (140-400); Red Blood Count 3.65 M/mcL (3.82-4.97); Red Cell Distribution Width 12.7 % (11.5-14.5); Segmented Neutrophils % 65.5 %; White Blood Count 10.3 K/mcL (4.3-11.1)
[2021-10-15 03:31] LABS: BUN/Creatinine Ratio 23 (6-26); Blood Urea Nitrogen 23 mg/dL (8-23); Calcium 8.5 mg/dL (8.6-10.3); Carbon Dioxide 25 mEq/L (23-29); Chloride 106 mEq/L (98-107); Chol/HDL Ratio 4.8 (0-4.9); Cholesterol 190 mg/dL (< 200); Glucose 106 mg/dL (70-105); HDL Cholesterol 40 mg/dL (40-59); LDL Cholesterol,Calculated 128 mg/dL (< 100); Osmolality,Calculated 286 (280-300); Potassium 3.9 mEq/L (3.5-5.1); Sodium 136 mEq/L (136-145); Triglycerides 109 mg/dL (< 150); eGFR For African Americans > 60 (> 60); eGFR For Non-African Americans 53 (> 60)
[2021-10-15 07:19] VITALS: PULSE 73; TEMP 98.3
[2021-10-15 07:32] VITALS: BP 117/63
[2021-10-15] MEDS ORDERED: *HR* Heparin 10,000 UNIT/10 ML VIAL ONE ×2 (07:47→10:38)
[2021-10-15] MEDS ORDERED: 0.9 % Sodium Chloride 1,000 ML ONE ×5 (07:47→12:07)
[2021-10-15] MEDS ORDERED: *HR* Midazolam HCl 2 MG/2 ML VIAL ONE ×2 (07:49→09:30)
[2021-10-15] MEDS ORDERED: *HR* FentaNYL (PF) 100 MCG/2 ML VIAL ONE ×2 (07:49→09:43)
[2021-10-15] MEDS: Metoprolol XL (24 HR) Succ 50 MG TAB.ER.24H PO SCH (07:51)
[2021-10-15] MEDS: Aspirin 81 MG TAB.CHEW PO SCH (07:51)
[2021-10-15] MEDS ORDERED: Heparin 1,000 UNITS/500 mL 500 ML ONE ×4 (08:21→11:11)
[2021-10-15] MEDS ORDERED: ISOVUE-370 200 ML INFUS..BTL ONE ×2 (08:35→10:39)
[2021-10-15] MEDS ORDERED: *HR* Atropine Sulfate 1 MG/10 ML SYRINGE ONE (08:54)
[2021-10-15] MEDS ORDERED: D5% in Water 250 ML ONE (08:58)
[2021-10-15] MEDS ORDERED: *HR* Norepinephrine 4 MG/4 ML VIAL IVC ONE (08:58)
[2021-10-15] MEDS ORDERED: Midazolam HCl 50 MG/100 ML IV.SOLN IVC SCH (09:30)
[2021-10-15] MEDS ORDERED: FentaNYL (PF) 1,000 MCG/100 ML IV.SOLN IVC SCH (09:30)
[2021-10-15] MEDS ORDERED: Nitroglycerin 1,000 MCG/5 ML VIAL IV ONE ×2 (10:04→10:39)
[2021-10-15 10:34] VITALS: O2SAT 199
[2021-10-15 10:42] LABS: Estimated Average Glucose 114 mg/dl; Hemoglobin A1C 5.6 %
[2021-10-15] MEDS ORDERED: *HR* Succinylcholine 200 MG/10 ML VIAL IVP ONE (13:03)
== END 2021-10-15 13:04 | disposition short-term general hospital (02) | DRG 282 ==
LOC: 2ANU → SUATTDRO 12:26
PROVIDERS: ADMIT Internal Medicine; ATTEND Internal Medicine